=== PATIENT | male | born 1965 | race Caucasian/White ===

== ENCOUNTER → 2019-01-14 | Outpatient (CLI) | payer BC ==
[~2019-01-14] MED LIST: NITROGLYCERIN AEROSOL (4.9 GM)
[2019-01-14] MEDS: SOD CHLORIDE 0.9% 100 ML (15:00)
[2019-01-14] MEDS: IOHEXOL 100 ML (15:00)
== END | disposition home or self-care (01) ==
LOC: C/S 10:09
DX: R94.39 Abnormal result of other cardiovascular function study (principal)
CPT/HCPCS: 75571; 75571-59; 75574